=== PATIENT | male | born 1980 | race Caucasian/White ===

== ENCOUNTER → 2016-12-05 | Outpatient (CLI) | payer OTHER | DX: M54.5 Low back pain (principal); M47.814 Spondylosis without myelopathy or radiculopathy, thoracic region; M47.816 Spondylosis without myelopathy or radiculopathy, lumbar region; Y99.0 Civilian activity done for income or pay | CPT/HCPCS: 72070; 72110 ==

== ENCOUNTER → 2021-03-06 | Outpatient (CLI) | payer OTHER ==
[~2021-03-06] MED LIST: ALLEGRA ALLERG180 MG PO; AZELASTINE 0.1%; CETIRIZINE HCL10 MG PO; DICLOFENAC GEL 1% TOP; NITROSTAT0.4 MG SL; NORCO 5-325 TA1 EACH PO; PROTONIX 40 MG40 M1 PO; ROBAXIN 750 MG750 MG PO; ULTRAM50 MG PO; VITAMIN D PO; VITAMIN D250000 UNIT PO; ZOCOR 40 MG TAB40 MG PO; ZOCOR20 MG PO
== END ==
LOC: KOH-I 09:50
DX: M54.2 Cervicalgia (principal)
CPT/HCPCS: 72040

== ENCOUNTER 2022-01-05 22:05 | Emergency (ER) | payer OTHER | END 2022-01-06 00:29 | disposition left against medical advice (07) | LOC: ER1 22:05 | DX: I10 Essential (primary) hypertension (principal); F17.210 Nicotine dependence, cigarettes, uncomplicated | CPT/HCPCS: 93005; 99281 ==

== ENCOUNTER 2022-01-11 21:55 | Emergency (ER) | payer OTHER ==
[2022-01-11 23:26] LABS: HEMOGLOBIN 14.7 gm/dl (14.0-17.5); RED BLOOD COUNT 4.18 M/UL (4.20-5.50); WHITE BLOOD COUNT 10.3 K/UL (4.5-11.0)
[2022-01-11 23:46] LABS: BUN/CREATININE RATIO 8 (0-10)
[2022-01-12] MEDS ORDERED: CLEOCIN HCL150 MG PO (01:51)
[2022-01-12] MEDS ORDERED: PROBIOTIC & AC1 EACH PO (01:51)
== END 2022-01-12 02:30 | disposition home or self-care (01) ==
LOC: ER1 21:55
PROVIDERS: Physician Assistant
DX: L03.811 Cellulitis of head [any part, except face] (principal); I10 Essential (primary) hypertension
CPT/HCPCS: 70496; 80053; 85025; 85652; 86140; 96374; 96375; 99284; J2270; Q9967

== ENCOUNTER → 2022-01-28 | Outpatient (CLI) | payer OTHER ==
[~2022-01-28] MED LIST changes: +CLEOCIN HCL150 MG PO; +PROBIOTIC & AC1 EACH PO
== END ==
LOC: EMI 13:00
DX: M51.37 Other intervertebral disc degeneration, lumbosacral region (principal); Z98.1 Arthrodesis status
CPT/HCPCS: 72148

== ENCOUNTER → 2022-06-17 | Outpatient (CLI) | payer OTHER | LOC: US 10:00 | DX: D44.0 Neoplasm of uncertain behavior of thyroid gland (principal) ==

== ENCOUNTER → 2022-06-26 | Outpatient (CLI) | payer OTHER | LOC: HEART 5 06-13 11:30 | DX: R60.9 Edema, unspecified (principal); I08.1 Rheumatic disorders of both mitral and tricuspid valves | CPT/HCPCS: 93306 ==